=== PATIENT | male | born 1970 | race Caucasian/White ===

== ENCOUNTER 2017-01-19 11:28 | Emergency (ER) | payer MEDICARE, OTHER ==
[~2017-01-19] VITALS: Ht 180.3 cm; Wt 90.9 kg
[~2017-01-19 11:28] MED LIST: ACETAMINOPHEN W1 TA6 PO; AMOXICILLIN 50500 MG PO; ASPIRIN 81M81 MG/TA2 PO; COUMADIN 5MG5 MG/TAB PO; COUMADIN 77.5 MG/TAB PO; NO HOME MEDICATIONS; NORCO 325 MG-7.1 TAB PO; PERCOCET 5/321 UDTAB PO; PHENERGAN 25 TA25 MG PO; PHENERGAN25 MG RC; TAMIFLU 75MG75 MG PO; ZITHROMAX 250M250 MG PO
[2017-01-19 11:33] VITALS: BP 134/70; TEMP 98.3
[2017-01-19 12:35] VITALS: PULSE 81
== END 2017-01-19 12:35 | disposition home or self-care (01) ==
LOC: COL.ER 11:28
DX: T15.02XA Foreign body in cornea, left eye, initial encounter (principal)